=== PATIENT | male | born 1960 | race Caucasian/White ===

== ENCOUNTER 2019-11-20 09:02 | Outpatient (CLI) | payer BC ==
--- NOTE | 2019-11-20 09:39 | RAD ---
Lumbar spine 5 views: 11/20/2019 COMPARISON: None HISTORY: Lumbar spondylolisthesis FINDINGS: 5 lumbar type vertebral bodies are present. Lumbar pedicles appear intact on the frontal ex am. There is mild left lateral osteophyte formation at L2-3. Neutral lateral examination demonstrates disc space narrowing with degenerative endplate change and a nterior osteophyte formation at L5-S1. There is 7 mm of anterolisthesis of L5 on S1 on the neutral view. On the flexion exam the anterolisthesis of L5 on S1 is estimated at 8-9 mm and on the extension imaging at 7-8 mm. Multilevel lower lumbar spine facet hypertrophy, most prominent at the L4-5 and L5-S1 levels. No acute fracture seen. IMPRESSION: Degenerative disc disease at the L5-S1 level with anterolisthesis measuring up to 9 mm wi th flexion.
== END 2019-11-20 09:03 | disposition home or self-care (01) ==
LOC: MADRAD 09:02
PROVIDERS: ATTEND Neurological Surgery
DX: M43.16 Spondylolisthesis, lumbar region (principal); M43.17 Spondylolisthesis, lumbosacral region; M51.37 Other intervertebral disc degeneration, lumbosacral region
CPT/HCPCS: 72110

== ENCOUNTER 2020-02-04 13:53 | Outpatient (CLI) | payer BC ==
--- NOTE | 2020-02-04 14:52 | RAD ---
LUMBAR SPINE 5 VIEWS: HISTORY: Postop. Low back pain with sciatica and spondylolisthesis. COMPARISON: Preop exam of 11/20/2019. FINDINGS: Postoperative changes are now noted at L5-S1. Pedicle screws are seen at this level and there is int erbody implant. Slight anterolisthesis at L5-S1 is noted with loss of disk space. The anterolisthes is appears improved when compared to preoperative study. The other lumbar vertebrae maintain height and alignment. Disk spaces are otherwise preserved. No o ther interval change noted. IMPRESSION: Postoperative changes are now noted at L5-S1. POS: [facility]
== END 2020-02-04 13:54 | disposition home or self-care (01) ==
LOC: MADRAD 13:53
PROVIDERS: ATTEND Neurological Surgery
DX: M43.16 Spondylolisthesis, lumbar region (principal); M54.30 Sciatica, unspecified side; Z98.890 Other specified postprocedural states
CPT/HCPCS: 72110